=== PATIENT | female | born 2000 | race African-American/Black ===

== ENCOUNTER 2023-02-09 22:06 | Emergency (ER) | payer MEDICAID ==
[~2023-02-09] VITALS: Ht 157.5 cm; Wt 100.0 kg
[2023-02-09 22:16] VITALS: O2SAT 100
[2023-02-09 22:41] LABS: CLARITY URINE CLEAR (CLEAR); COLOR URINE DARK YELLOW (YELLOW); GLUCOSE URINE NEGATIVE (NEGATIVE); KETONES URINE NEGATIVE (NEGATIVE); LEUKOCYTE ESTERASE URINE NEGATIVE (NEGATIVE); NITRITE URINE NEGATIVE (NEGATIVE); OCCULT BLOOD URINE NEGATIVE (NEGATIVE); PH URINE 5.5 (4.5-8.0); PROTEIN URINE NEGATIVE (NEGATIVE); SPECIFIC GRAVITY URINE 1.033 (1.005-1.030)
[2023-02-09] MEDS ORDERED: ACET-2708 MT (23:38)
[2023-02-09] MEDS ORDERED: LIDO700A15 TP (23:38)
[2023-02-09] MEDS ORDERED: KETOROLAC 30MG/ML VIAL IM ONE (23:45)
[2023-02-09 23:49] VITALS: BP 110/68; PULSE 76; RESP 18; TEMP 98.6
== END 2023-02-09 23:50 | disposition home or self-care (01) ==
LOC: ER 22:06
DX: M54.50 Low back pain, unspecified (principal)
CPT/HCPCS: 81003; 81025; 99283

== ENCOUNTER 2024-12-03 10:38 | Emergency (ER) | payer MEDICAID ==
[~2024-12-03] VITALS: Ht 157.5 cm; Wt 100.0 kg
[~2024-12-03 10:38] MED LIST: ACET-2708 MT; LIDO-53 TP
[2024-12-03 10:47] VITALS: TEMP 36.9; O2SAT 98
[2024-12-03 11:32] LABS: HCG SCREEN NEGATIVE
[2024-12-03 12:21] VITALS: BP 134/83; PULSE 75; RESP 18; O2SAT 100
== END 2024-12-03 12:25 | disposition home or self-care (01) ==
LOC: ER 10:38
DX: Z32.02 Encounter for pregnancy test, result negative (principal); Z79.899 Other long term (current) drug therapy
CPT/HCPCS: 81025; 84703; 99283